=== PATIENT | male | born 1975 | race Caucasian/White ===

== ENCOUNTER 2023-07-15 19:29 | Emergency (ER) | payer MEDICAID ==
[~2023-07-15] VITALS: Ht 165.1 cm; Wt 102.1 kg
[2023-07-15 20:10] VITALS: BP_SYST 153; PULSE 80; RESP 18; TEMP 97.9; O2SAT 99
[2023-07-15 21:29] VITALS: BP_SYST 149; PULSE 85; RESP 17; TEMP 98.1; O2SAT 98
[2023-07-15] MEDS ORDERED: HYDROcodone/ACETAMIN 5-325 MG TAB (NORCO/ VICODIN) PO ONE (22:30)
[2023-07-15] MEDS ORDERED: HYDR30CR79 TP (22:33)
[2023-07-15] MEDS ORDERED: POLY17PO4 PO (22:33)
[2023-07-15 22:52] VITALS: BP_SYST 137; PULSE 77; RESP 18; TEMP 97.9; O2SAT 98
== END 2023-07-15 22:56 | disposition home or self-care (01) ==
LOC: SED 19:29
DX: K64.4 Residual hemorrhoidal skin tags (principal); Z79.899 Other long term (current) drug therapy
CPT/HCPCS: 99283